=== PATIENT | female | born 1980 | race Caucasian/White ===

== ENCOUNTER 2016-06-21 13:42 | Emergency (ER) | payer MEDICAID ==
[~2016-06-21] VITALS: Ht 170.2 cm; Wt 67.1 kg
[~2016-06-21 13:42] MED LIST: PROV10 PO
[2016-06-21] MEDS ORDERED: NACL 0.9% 1,000 ML IV ONE (13:55)
[2016-06-21] MEDS ORDERED: ONDANSETRON HCL 4 MG/2 ML VIAL IVP ONE (14:00)
[2016-06-21] MEDS ORDERED: KETOROLAC TROMETHAMINE 30 MG VIAL IVP ONE (14:00)
[2016-06-21 14:28] LABS: BASOPHILS % (AUTO) 0.3 % (0.0-2.0); BILIRUBIN,URINE NEGATIVE (NEGATIVE); BLOOD, URINE 2+ (NEGATIVE); CLARITY/URINE CLEAR (CLEAR); COLOR,URINE YELLOW (YELLOW); EOSINOPHILS % (AUTO) 0.1 % (0.0-4.0); GLUCOSE,URINE NEGATIVE (NEGATIVE); HEMATOCRIT 34.1 % (36-48); HEMOGLOBIN 11.7 g/dL (12.0-16.0); KETONES,URINE 2+ (NEGATIVE); LEUKOCYTE ESTERASE ,URINE NEGATIVE (NEGATIVE); LYMPHOCYTES # (AUTO) 0.4 K/uL (1.0-5.5); LYMPHOCYTES % (AUTO) 6.8 % (20.5-51.5); MEAN CORPUSCULAR HEMOGLOBIN 31 pg (27-31); MEAN CORPUSCULAR HGB CONC 34 % (32-36); MEAN CORPUSCULAR VOLUME 90 fL (79.0-98.0); MONOCYTES # (AUTO) 0.1 K/uL (0.0-1.0); MONOCYTES % (AUTO) 1.8 % (1.7-9.3); NEUTROPHILS # (AUTO) 5.9 K/uL (1.8-7.7); NITRITE, URINE NEGATIVE (NEGATIVE); PLATELET COUNT (AUTO) 255 K/uL (130-430); PROTEIN URINE TRACE (NEGATIVE); RED BLOOD CELL COUNT(AUTO) 3.79 MIL/uL (4.2-6.2); RED CELL DISTRIBUTION WIDTH 13.3 % (9.0-15.0); UROBILINOGEN,URINE 0.2 (0.2-1.0); WHITE BLOOD COUNT (AUTO) 6.4 K/uL (4.8-10.8)
[2016-06-21 14:30] VITALS: BP 96/57; PULSE 64; RESP 16; TEMP 98; O2SAT 100
[2016-06-21 14:39] LABS: CALCIUM 8.7 mg/dL (8.4-11.0); CREATININE 0.91 mg/dL (0.55-1.30); POTASSIUM 3.8 mmol/L (3.5-5.1)
[2016-06-21 14:42] LABS: BACTERIA,URINE FEW /HPF (None Seen); MUCUS,URINE 1+ /LPF (None Seen); RBC,URINE 0-3 /HPF (0-3); WBC,URINE 0-3 /HPF (0-3)
[2016-06-21 14:43] LABS: PROTHROMBIN TIME 10.7 SECS (9.5-12.5)
[2016-06-21 14:44] LABS: ALBUMIN 4.2 g/dL (3.4-4.8); TOTAL BILIRUBIN 0.3 mg/dL (0.0-1.0); TOTAL PROTEIN, SERUM 7.8 g/dL (6.4-8.3)
--- NOTE | 2016-06-21 15:00 | NUR ---
Patient to ER bed 2 to gown for evaluation. Side rails up. Report given to Reji ANSARI.
--- NOTE | 2016-06-21 15:05 | NUR ---
ER at bedside examining patient.
--- NOTE | 2016-06-21 15:10 | NUR ---
Pt presenst to ED c/o lower abd pain. No significant med hx.
[2016-06-21] MEDS ORDERED: PROCHLORPERAZINE EDISYLATE 10 MG/2 ML VIAL IVP ONE (15:15)
--- NOTE | 2016-06-21 15:20 | NUR ---
Patient refused Compazine states "i dont feel nausea right now, i feel ok" ER MD aware
--- NOTE | 2016-06-21 16:00 | NUR ---
IVF infusing. Pt tolerating well.
[2016-06-21] MEDS ORDERED: MORPHINE 4 MG/ML INJ. SYRINGE IVP ONE (16:30)
--- NOTE | 2016-06-21 16:30 | NUR ---
Pt medcated for pain tolerated well.
[2016-06-21 16:50] VITALS: BP 110/62; PULSE 66; RESP 16; TEMP 98.2; O2SAT 100
--- NOTE | 2016-06-21 16:50 | NUR ---
Patient given written and verbal discharge instructions and verbalizes understanding. ER MD discussed with patient the results and treatment provided. Given copies of tests performed in ER. Patient in stable condition. ID arm band removed. IV catheter removed intact and dressing applied, no active bleeding. Patient educated on pain management and to follow up with PMD. Pain Scale 0. Opportunity for questions provided and answered.
== END 2016-06-21 16:50 | disposition home or self-care (01) ==
LOC: SED 13:42
DX: R10.84 Generalized abdominal pain (principal); R11.2 Nausea with vomiting, unspecified; G43.909 Migraine, unspecified, not intractable, without status migrainosus; Z88.5 Allergy status to narcotic agent; Z88.1 Allergy status to other antibiotic agents
CPT/HCPCS: 36415; 74176; 80053; 81000; 81025; 82150; 83605; 83690; 85025; 85610; 85730; 87040; 96361; 96374; 96375; 99285; J0780; J1885; J2270; J2405; J7030

== ENCOUNTER 2019-01-18 21:01 | Emergency (ER) | payer MEDICAID ==
[~2019-01-18] VITALS: Ht 167.6 cm; Wt 63.5 kg
[2019-01-18 21:15] VITALS: BP_SYST 106
[2019-01-18] MEDS ORDERED: IPRATROPIUM/ALBUTEROL SULFATE 3 ML AMPUL.NEB (DUONEB) INH ONE (21:15)
[2019-01-18] MEDS ORDERED: KETOROLAC TROMETHAMINE 30 MG VIAL IM ONE (22:00)
[2019-01-18] MEDS ORDERED: methylPREDNISolone SOD SUCC/PF 62.5 MG/ML VIAL IM ONE (22:00)
[2019-01-18] MEDS ORDERED: ACETAMINOPHEN 500 MG TABLET PO ONE (22:00)
[2019-01-18 23:07] VITALS: BP_SYST 106
== END 2019-01-18 23:07 | disposition home or self-care (01) ==
LOC: SED 21:01
DX: J45.909 Unspecified asthma, uncomplicated (principal); M72.2 Plantar fascial fibromatosis; G43.909 Migraine, unspecified, not intractable, without status migrainosus; Z88.2 Allergy status to sulfonamides; Z88.5 Allergy status to narcotic agent; Z88.8 Allergy status to other drugs, medicaments and biological substances
CPT/HCPCS: 71045; 73630; 94640; 96372; 99283; J2930; J7620

== ENCOUNTER 2020-03-06 23:47 | Emergency (ER) | payer MEDICAID ==
[2020-03-07 00:25] VITALS: BP_SYST 101
--- NOTE | 2020-03-07 00:53 | NUR ---
Pt ambulatory to chair for evaluation
--- NOTE | 2020-03-07 00:58 | NUR ---
39 Y/O FEMALE AAO3 BIB BY FOR WORSENING RINGING IN THE EARS CAUSING VISUAL DISTIRBENCES AND DIFFCULTY BALANCING WITH PAIN 8 OUT OF 10 AND APPOINTMENT WITH PRIMARY AT END OF THE MONTH PT. UNABLE TO ENDURE THE PAIN AFTER THE LAST 6 WEEKS OF COMPLAINT
--- NOTE | 2020-03-07 01:09 | NUR ---
ER at bedside examining patient.
--- NOTE | 2020-03-07 01:46 | NUR ---
Patient given written and verbal discharge instructions and verbalizes understanding. ER MD LOCK discussed with patient the results and treatment provided. Patient in stable condition. ID arm band removed. Rx of XANAX given. Patient educated on pain management and to follow up with PMD. Pain Scale 2/10. Opportunity for questions provided and answered. Medication side effect fact sheet provided.
[2020-03-07 01:53] VITALS: BP_SYST 101
== END 2020-03-07 01:53 | disposition home or self-care (01) ==
LOC: SED 23:47
DX: H93.19 Tinnitus, unspecified ear (principal); J45.909 Unspecified asthma, uncomplicated; G43.909 Migraine, unspecified, not intractable, without status migrainosus; Z88.2 Allergy status to sulfonamides; Z88.5 Allergy status to narcotic agent
CPT/HCPCS: 99283

== ENCOUNTER 2022-07-15 21:40 | Emergency (ER) | payer BC, MEDICAID ==
[~2022-07-15] VITALS: Ht 167.6 cm; Wt 61.2 kg
[2022-07-15 22:05] VITALS: BP_SYST 86
--- NOTE | 2022-07-15 22:10 | NUR ---
PT BIB SPOUSE FR HOME C/O FEELING LIKE SHE HAS MOTION SICKNESS THAT'S BEEN GOING ON & OFF FOR 1 WK NOW. SIMULTANEOUS R & L HIP 9/10 HIP PAIN, NUMBNESS & TINGLING ON BUE & BLE. POOR PO INTAKE. ALLERGY: BACTRIM PMH: ON MEDS GABAPENTIN & CYMBALTA FOR NERVE PAIN SURGICAL HX: TUBAL LIGATION 2007 & HERNIA MESH 2009
--- NOTE | 2022-07-15 22:21 | NUR ---
Patient to ER bed 03 to gown for evaluation.
--- NOTE | 2022-07-15 22:29 | NUR ---
ER at bedside examining patient.
[2022-07-15] MEDS ORDERED: NACL 0.9% 1,000 ML IV ONE (22:30)
[2022-07-15] MEDS ORDERED: MORPHINE 4 MG INJ. 4 MG/ML VIAL IVP ONE (22:30)
[2022-07-15] MEDS ORDERED: ONDANSETRON HCL 4 MG/2 ML VIAL IVP ONE (22:30)
--- NOTE | 2022-07-15 22:36 | NUR ---
# 18 gauge angiocath placed to RAC. Use of asceptic technique. Opsite placed over site. Blood return noted. Blood for lab drawn from site. Flushed with 10 cc of normal saline. No evidence of infiltration noted. Patient tolerated well.
[2022-07-15] MEDS ORDERED: DIPHENHYDRAMINE INJ 50 MG/ML VIAL IVP ONE (23:15)
[2022-07-15] MEDS ORDERED: KETOROLAC TROMETHAMINE 30 MG VIAL IVP ONE (23:15)
[2022-07-15 23:17] LABS: BASOPHILS % (AUTO) 0.6 % (0.0-2.0); EOSINOPHILS # (AUTO) 0.2 K/uL (0.0-0.4); EOSINOPHILS % (AUTO) 3.2 % (0.0-4.0); HEMATOCRIT 33.5 % (36-48); HEMOGLOBIN 11.1 g/dL (12.0-16.0); LYMPHOCYTES # (AUTO) 1.9 K/uL (1.0-5.5); LYMPHOCYTES % (AUTO) 31.9 % (20.5-51.5); MEAN CORPUSCULAR HEMOGLOBIN 28 pg (27-31); MEAN CORPUSCULAR HGB CONC 33 % (32-36); MEAN CORPUSCULAR VOLUME 86 fL (79.0-98.0); MONOCYTES # (AUTO) 0.4 K/uL (0.0-1.0); MONOCYTES % (AUTO) 7.2 % (1.7-9.3); NEUTROPHILS # (AUTO) 3.4 K/uL (1.8-7.7); NEUTROPHILS % (AUTO) 57.1 % (40.0-70.0); PLATELET COUNT (AUTO) 373 K/uL (130-430); RED BLOOD CELL COUNT(AUTO) 3.91 MIL/uL (4.2-6.2); RED CELL DISTRIBUTION WIDTH 14.2 % (9.0-15.0); WHITE BLOOD COUNT (AUTO) 5.9 K/uL (4.8-10.8)
[2022-07-15 23:32] LABS: CALCIUM 8.4 mg/dL (8.4-11.0); CREATININE 0.81 mg/dL (0.55-1.30)
[2022-07-15 23:43] LABS: ALBUMIN 3.5 g/dL (3.4-4.8); TOTAL BILIRUBIN 0.3 mg/dL (0.0-1.0)
[2022-07-15 23:47] LABS: BILIRUBIN,URINE NEGATIVE (NEGATIVE); BLOOD, URINE 1+ (NEGATIVE); COLOR,URINE YELLOW (YELLOW); GLUCOSE,URINE NEGATIVE (NEGATIVE); KETONES,URINE NEGATIVE (NEGATIVE); LEUKOCYTE ESTERASE ,URINE NEGATIVE (NEGATIVE); NITRITE, URINE NEGATIVE (NEGATIVE); PROTEIN URINE NEGATIVE (NEGATIVE); UROBILINOGEN,URINE 0.2 (0.2-1.0)
[2022-07-15 23:49] LABS: CLARITY/URINE HAZY (CLEAR)
[2022-07-15 23:59] LABS: BACTERIA,URINE None Seen /HPF (None Seen); WBC,URINE 0-3 /HPF (0-3)
[2022-07-16 01:08] LABS: FREE T4 (FREE THYROXINE) 0.9 ng/dL (0.6-1.6); THYROID STIMULATING HORMONE 2.95 uIu/mL (0.34-4.82)
[2022-07-16] MEDS ORDERED: LIDO1ADH71 TD (01:49)
[2022-07-16] MEDS ORDERED: METH-634 PO (01:49)
[2022-07-16] MEDS ORDERED: MECL-225 PO (01:49)
--- NOTE | 2022-07-16 01:52 | NUR ---
Note melony in EDM - 07/16/22 at 0208 by [email or web address] Admit bed requested Patient will be admitted to care of . Admitted to TELEMETRY unit. Diagnosis INFECTED WOUND Inpatient (Yes or No) Y Observation (Yes or No) N Orientation concerns or request close to nursing station (Yes or No) N Covid Status PENDING On vent or bipap N Isolation requirements N Needs a sitter N From Home (Yes or if No enter name of facility) Y Requires Dialysis (Yes or No) N Med Rec Completed (Yes of No) Y
[2022-07-16 02:07] VITALS: BP_SYST 110
== END 2022-07-16 02:07 | disposition home or self-care (01) ==
LOC: SED 21:40
DX: R42 Dizziness and giddiness (principal); R20.2 Paresthesia of skin; R10.30 Lower abdominal pain, unspecified; R35.0 Frequency of micturition; J45.909 Unspecified asthma, uncomplicated; Z88.2 Allergy status to sulfonamides; Z88.5 Allergy status to narcotic agent; Z79.899 Other long term (current) drug therapy
CPT/HCPCS: 99285; 70450; 96374; 96375; 96361; 80053; 81000; 84702; 84439; 84443; 85025; 86886; 86900; 86901; 36415; 76376; 74176; 81025; J1200; J1885; J2405; J2270; J7030

== ENCOUNTER 2022-07-30 12:15 | Emergency (ER) | payer BC, MEDICAID ==
[~2022-07-30] VITALS: Ht 165.1 cm; Wt 59.0 kg
[~2022-07-30 12:15] MED LIST changes: +LIDO1ADH71 TD; +MECL-225 PO; +METH-634 PO; -PROV10 PO
[2022-07-30 12:39] VITALS: BP_SYST 99
[2022-07-30] MEDS ORDERED: NACL 0.9% 1,000 ML IV ONE (13:15)
[2022-07-30] MEDS ORDERED: KETOROLAC TROMETHAMINE 30 MG VIAL IVP ONE (13:15)
[2022-07-30 13:26] LABS: BILIRUBIN,URINE NEGATIVE (NEGATIVE); BLOOD, URINE 2+ (NEGATIVE); CLARITY/URINE CLEAR (CLEAR); COLOR,URINE YELLOW (YELLOW); GLUCOSE,URINE NEGATIVE (NEGATIVE); KETONES,URINE NEGATIVE (NEGATIVE); LEUKOCYTE ESTERASE ,URINE NEGATIVE (NEGATIVE); NITRITE, URINE NEGATIVE (NEGATIVE); PROTEIN URINE NEGATIVE (NEGATIVE); UROBILINOGEN,URINE 0.2 (0.2-1.0)
[2022-07-30 13:39] LABS: BACTERIA,URINE FEW /HPF (None Seen); MUCUS,URINE 1+ /LPF (None Seen); WBC,URINE 0-3 /HPF (0-3)
[2022-07-30 14:12] LABS: BASOPHILS % (AUTO) 0.2 % (0.0-2.0); HEMATOCRIT 32.5 % (36-48); HEMOGLOBIN 10.7 g/dL (12.0-16.0); LYMPHOCYTES # (AUTO) 0.4 K/uL (1.0-5.5); LYMPHOCYTES % (AUTO) 7.7 % (20.5-51.5); MEAN CORPUSCULAR HEMOGLOBIN 29 pg (27-31); MEAN CORPUSCULAR HGB CONC 33 % (32-36); MEAN CORPUSCULAR VOLUME 87 fL (79.0-98.0); MONOCYTES % (AUTO) 0.6 % (1.7-9.3); NEUTROPHILS # (AUTO) 4.5 K/uL (1.8-7.7); NEUTROPHILS % (AUTO) 91.5 % (40.0-70.0); PLATELET COUNT (AUTO) 264 K/uL (130-430); RED BLOOD CELL COUNT(AUTO) 3.76 MIL/uL (4.2-6.2); WHITE BLOOD COUNT (AUTO) 4.9 K/uL (4.8-10.8)
[2022-07-30 14:20] LABS: CALCIUM 8.3 mg/dL (8.4-11.0); CREATININE 0.95 mg/dL (0.55-1.30)
[2022-07-30 14:24] LABS: ALBUMIN 3.6 g/dL (3.4-4.8); TOTAL BILIRUBIN 0.3 mg/dL (0.0-1.0)
[2022-07-30] MEDS ORDERED: MORPHINE 4 MG INJ. 4 MG/ML VIAL IVP ONE ×2 (14:30→15:15)
[2022-07-30 17:09] VITALS: BP_SYST 135
== END 2022-07-30 17:11 | disposition home or self-care (01) ==
LOC: SED 12:15
DX: M89.252 Other disorders of bone development and growth, left femur (principal); M79.7 Fibromyalgia; M79.672 Pain in left foot; G89.29 Other chronic pain; M79.652 Pain in left thigh; J45.909 Unspecified asthma, uncomplicated; Z88.2 Allergy status to sulfonamides; Z88.5 Allergy status to narcotic agent; Z79.899 Other long term (current) drug therapy
CPT/HCPCS: 99285; 96374; 73700; 96361; 96375; 80053; 81000; 85025; 36415; 73552; 73650; 76376; 96376; 83605; J1885; J2270; J7030